=== PATIENT | female | born 1960 | race American Indian/Alaskan Native ===

== ENCOUNTER 2021-12-25 13:12 | Emergency (ER) | payer SELFPAY | END 2021-12-26 05:21 | disposition left against medical advice (07) | LOC: ED 13:12 | DX: R06.02 Shortness of breath (principal); Z53.21 Procedure and treatment not carried out due to patient leaving prior to being seen by health care provider ==

== ENCOUNTER 2021-12-30 06:41 | Emergency (ER) | payer MEDICARE, MEDICAID ==
[2021-12-30 06:49] VITALS: BP 134/82
[2021-12-30] MEDS ORDERED: dexAMETHasone 20 MG/5 ML VIAL IM ONE (07:46)
[2021-12-30] MEDS ORDERED: IPRATROPIUM 0.02% NEBU 2.5 ML IH ONE (07:48)
[2021-12-30] MEDS ORDERED: dexAMETHasone 20 MG/5 ML VIAL IV SCH (08:00)
[2021-12-30] MEDS ORDERED: ALBUTEROL 2.5 MG/3 ML NEBU IH SCH (08:00)
[2021-12-30] MEDS ORDERED: IPRATROPIUM 0.02% NEBU 2.5 ML IH SCH (08:00)
--- NOTE | 2021-12-30 08:30 | Emergency Department Report ---
ED Asthma HPI - General Chief Complaint: Adult Asthma Stated Complaint: ASTHMA ATTACK Time Seen by Provider: 12/30/21 07:11 Source: EMS Mode of arrival: Stretcher Limitations: No Limitations - History of Present Illness Initial Comments: This is a 61-year-old female nontoxic, well nourished in appearance, no acute signs of distress presents to the ED with c/o of acute on chronic asthma exacerbation. Patient stated she is out of her albuterol inhaler 1 month. Patient stated that she has seasonal allergies to pollen and has been outside that might have triggered her symptoms. Patient denies any cough. Patient denies any sick contact. Patient denies any recent travels, long car, recent hospital stays. Patient denies any calf pain or calf tenderness. Patient denies any chest pain, short of breath, fever, chills, nausea, vomiting, hemoptysis, numbness, tingling, headache or stiff neck. Past medical history includes asthma. MD Complaint: "asthma attack", wheezing -: days(s) Severity: mild Context: none known Associated Symptoms: none. denies: productive cough, dry cough, fever, chest pain, hemoptysis, leg edema, syncope - Related Data Current Asthma Therapy: none Previous Rx's Medication Instructions Recorded Last Taken Type Albuterol Mdi (or & Nicu Only) 2 puff IH QID PRN #8.5 gram 12/30/21 Unknown Rx [ProAir HFA Inhaler] Allergies Allergy/AdvReac Type Severity Reaction Status Date / Time prochlorperazine Allergy Anaphylaxis Verified 12/30/21 07:40 [From Compazine] shrimp Allergy Anaphylaxis Verified 12/30/21 07:40 ED Review of Systems ROS: Stated complaint: ASTHMA ATTACK Other details as noted in HPI Comment: All other systems reviewed and negative Constitutional: denies: chills, fever Eyes: denies: eye pain, eye discharge, vision change ENT: denies: ear pain, throat pain Respiratory: shortness of breath, wheezing. denies: cough, SOB with exertion, SOB at rest Cardiovascular: denies: chest pain, palpitations Endocrine: no symptoms reported Gastrointestinal: denies: abdominal pain, nausea, diarrhea Genitourinary: denies: urgency, dysuria, discharge Musculoskeletal: denies: back pain, joint swelling, arthralgia Skin: denies: rash, lesions Neurological: denies: headache, weakness, paresthesias Psychiatric: denies: anxiety, depression Hematological/Lymphatic: denies: easy bleeding, easy bruising ED Past Medical Hx - Past Medical History Previous Medical History?: Yes Hx Asthma: Yes - Surgical History Past Surgical History?: No - Social History Smoking Status: Never Smoker - Medications Home Medications: Home Medications Medication Instructions Recorded Confirmed Last Taken Type Albuterol Mdi (or & Nicu Only) 2 puff IH QID PRN #8.5 gram 12/30/21 Unknown Rx [ProAir HFA Inhaler] ED Physical Exam - General Limitations: No Limitations General appearance: alert, in no apparent distress - Head Head exam: Present: atraumatic, normocephalic - Eye Eye exam: Present: normal appearance - Neck Neck exam: Present: normal inspection, full ROM. Absent: lymphadenopathy - Respiratory Respiratory exam: Present: wheezes (Bilateral expiratory wheezing). Absent: respiratory distress, rales, rhonchi, stridor, chest wall tenderness, accessory muscle use, decreased breath sounds, prolonged expiratory - Cardiovascular Cardiovascular Exam: Present: normal rhythm, normal heart sounds. Absent: irregular rhythm, systolic murmur, diastolic murmur, rubs, gallop - Extremities Exam Extremities exam: Present: full ROM - Back Exam Back exam: Present: normal inspection, full ROM - Neurological Exam Neurological exam: Present: alert, oriented X3, normal gait - Psychiatric Psychiatric exam: Present: normal affect, normal mood - Skin Skin exam: Present: warm, dry, intact, normal color. Absent: rash ED Course Vital Signs 12/30/21 12/30/21 06:46 08:02 Temperature 98.3 F Pulse Rate 112 H Pulse Rate [ 90 Bilateral] Respiratory 22 Rate Respiratory 20 Rate [Bilateral ] Blood Pressure 134/82 O2 Sat by Pulse 99 Oximetry - Reevaluation(s) Reevaluation #1: 12/30/21 08:30 Patient is speaking in full sentences with no signs of distress noted. Reevaluation #2: 12/30/21 09:48 Patient states she feels much better and stated " I am ready to go home". At this time patient be discharged with appropriate follow-up. ED Medical Decision Making - Medical Decision Making This is a 61-year-old male that presents with asthma exacerbation. Patient is stable and was examined by me. Patient did receive breathing treatment and steroids in the ED which patient the symptoms has resolved and subsided. Posttreatment and there is no wheezing upon auscultation. Patient is discharged with albuterol. Patient was referred to Follow-up with a primary care doctor in 3-5 days or if symptoms worsen and continue return to emergency room as soon as possible. At time of discharge, the patient does not seem toxic or ill in appearance. No acute signs of distress noted. Patient agrees to discharge treatment plan of care. No further questions noted by the patient. This chart is dictated with using [employer] Critical care attestation.: If time is entered above; I have spent that time in minutes in the direct care of this critically ill patient, excluding procedure time. ED Disposition Clinical Impression: Asthma exacerbation Qualifiers: Asthma severity: mild Asthma persistence: intermittent Qualified Code(s): J45.21 - Mild intermittent asthma with (acute) exacerbation Disposition: 01 HOME / SELF CARE / HOMELESS Is pt being admited?: No Does the pt Need Aspirin: No Condition: Stable Instructions: Asthma, Adult Additional Instructions: Follow-up with a primary care doctor in 3-5 days or if symptoms worsen and continue return to emergency room as soon as possible. Prescriptions: Albuterol Mdi (or & Nicu Only) [ProAir HFA Inhaler] 2 puff IH QID PRN #8.5 gram PRN Reason: Shortness Of Breath Referrals: USHA CLAYTON MD [Primary Care Provider] - 3-5 Days PRIMARY CARE, [Referring] - 3-5 Days Time of Disposition: 09:49
== END 2021-12-30 10:13 | disposition home or self-care (01) ==
LOC: ED 06:41
DX: J45.901 Unspecified asthma with (acute) exacerbation (principal)
CPT/HCPCS: 94644; 96372; 99283; J1100

== ENCOUNTER 2022-01-06 03:08 | Emergency (ER) | payer MEDICARE ==
[2022-01-06 04:25] LABS: INR 0.76 (0.87-1.13)
[2022-01-06 04:26] LABS: Partial Thromboplastin Time 25.6 Sec. (24.2-36.6)
--- NOTE | 2022-01-06 04:26 | XRay Report ---
CHEST 1 VIEW 01/06/2022 3:18 AM INDICATION / CLINICAL INFORMATION: Dyspnea. COMPARISON: None available. FINDINGS: SUPPORT DEVICES: None. HEART / MEDIASTINUM: No significant abnormality. LUNGS / PLEURA: No significant pulmonary or pleural abnormality. No pneumothorax. ADDITIONAL FINDINGS: No significant additional findings. IMPRESSION: 1. No acute findings. Signer Name: Ever Shepherd DO Signed: 01/06/2022 4:22 AM Workstation Name: [id number]
[2022-01-06 04:27] LABS: Basophils # (Auto) 0.1 K/mm3 (0.0-0.1); Eosinophils # (Auto) 1.2 K/mm3 (0.0-0.4); Eosinophils % (Auto) 11.7 % (0.0-4.3); Hematocrit 42.5 % (30.3-42.9); Lymphocytes # (Auto) 3.3 K/mm3 (1.2-5.4); Lymphocytes % (Auto) 33.2 % (13.4-35.0); Mean Corpuscular HGB Conc 33 % (30-34); Mean Corpuscular Volume 81 fl (79-97); Monocytes # (Auto) 0.5 K/mm3 (0.0-0.8); Monocytes % (Auto) 5.4 % (0.0-7.3); Platelet Count 363 K/mm3 (140-440); Red Blood Count 5.26 M/mm3 (3.65-5.03); Red Cell Distribution Width 14.5 % (13.2-15.2)
[2022-01-06 04:33] LABS: Creatine Kinase MB 1.2 ng/mL (0.0-4.0)
[2022-01-06 04:35] LABS: Alanine Aminotransferase 21 units/L (7-56); Blood Urea Nitrogen 8 mg/dL (7-17); Calcium 9.3 mg/dL (8.4-10.2); Hemolysis Index 25
[2022-01-06 04:41] LABS: BUN/Creatinine Ratio 11
[2022-01-06] MEDS ORDERED: methylPREDNISolone Sod Succinate 125 MG/2 ML INJ IV ONE (06:53)
--- NOTE | 2022-01-06 07:03 | Emergency Department Report ---
ED Shortness of Breath HPI - General Chief Complaint: Dyspnea/Respdistress Stated Complaint: DIFF BREATHING Time Seen by Provider: 01/06/22 06:44 Source: EMS Mode of arrival: Ambulatory Limitations: No Limitations - History of Present Illness Initial Comments: Patient is a 61-year-old female with history of asthma brought in by EMS from home for shortness of breath. Given albuterol neb in route. - Related Data Previous Rx's Medication Instructions Recorded Last Taken Type Albuterol Mdi (or & Nicu Only) 2 puff IH QID PRN #8.5 gram 12/30/21 Unknown Rx [ProAir HFA Inhaler] predniSONE [Deltasone] 40 mg PO QDAY #10 01/06/22 Unknown Rx Allergies Allergy/AdvReac Type Severity Reaction Status Date / Time prochlorperazine Allergy Anaphylaxis Verified 12/30/21 07:40 [From Compazine] shrimp Allergy Anaphylaxis Verified 12/30/21 07:40 ED Review of Systems ROS: Stated complaint: DIFF BREATHING Other details as noted in HPI Comment: All other systems reviewed and negative Constitutional: denies: chills, fever Eyes: denies: eye pain, eye discharge, vision change ENT: denies: ear pain, throat pain Respiratory: shortness of breath Cardiovascular: denies: chest pain, palpitations Gastrointestinal: denies: abdominal pain, nausea, diarrhea Genitourinary: denies: urgency, dysuria, discharge Musculoskeletal: denies: back pain, joint swelling, arthralgia Skin: denies: rash, lesions Neurological: denies: headache, weakness, paresthesias Psychiatric: denies: anxiety, depression ED Past Medical Hx - Past Medical History Hx Asthma: Yes - Social History Smoking Status: Never Smoker Substance Use Type: None - Medications Home Medications: Home Medications Medication Instructions Recorded Confirmed Last Taken Type Albuterol Mdi (or & Nicu Only) 2 puff IH QID PRN #8.5 gram 12/30/21 Unknown Rx [ProAir HFA Inhaler] predniSONE [Deltasone] 40 mg PO QDAY #10 01/06/22 Unknown Rx ED Physical Exam - General Limitations: No Limitations General appearance: alert, in no apparent distress - Head Head exam: Present: atraumatic, normocephalic - Neck Neck exam: Present: normal inspection - Respiratory Respiratory exam: Present: normal lung sounds bilaterally. Absent: respiratory distress, wheezes - Cardiovascular Cardiovascular Exam: Present: regular rate, normal rhythm, normal heart sounds - GI/Abdominal GI/Abdominal exam: Present: soft. Absent: distended, tenderness - Neurological Exam Neurological exam: Present: alert, oriented X3 - Psychiatric Psychiatric exam: Present: normal affect, normal mood - Skin Skin exam: Present: warm, dry, intact, normal color ED Course Vital Signs 01/06/22 01/06/22 01/06/22 03:16 03:41 04:35 Temperature 97.6 F Pulse Rate 126 H 91 H Respiratory 35 H 16 11 L Rate Blood Pressure 202/170 Blood Pressure [Left] O2 Sat by Pulse 99 100 Oximetry 01/06/22 01/06/22 01/06/22 04:46 05:00 05:16 Temperature Pulse Rate 92 H 92 H 89 Respiratory 25 H 14 25 H Rate Blood Pressure 176/92 192/84 192/84 Blood Pressure [Left] O2 Sat by Pulse 100 100 100 Oximetry 01/06/22 01/06/22 01/06/22 05:30 05:37 05:38 Temperature 97.7 F Pulse Rate 88 88 Respiratory 16 16 Rate Blood Pressure 192/84 Blood Pressure 192/94 [Left] O2 Sat by Pulse 99 100 100 Oximetry 01/06/22 01/06/22 05:46 06:00 Temperature Pulse Rate 92 H 99 H Respiratory 16 16 Rate Blood Pressure 192/84 132/70 Blood Pressure [Left] O2 Sat by Pulse 100 100 Oximetry ED Medical Decision Making - Lab Data Result diagrams: 01/06/22 03:54 01/06/22 03:54 - Medical Decision Making 61-year-old female presenting to ED with complaint of asthma exacerbation. She was given albuterol by EMS. She was given IV Solu-Medrol here in the emergency department. On reassessment patients respiratory distress seems much improved. Will discharge home on 5-day course of prednisone. Critical care attestation.: If time is entered above; I have spent that time in minutes in the direct care of this critically ill patient, excluding procedure time. ED Disposition Clinical Impression: Asthma exacerbation Disposition: 01 HOME / SELF CARE / HOMELESS Is pt being admited?: No Does the pt Need Aspirin: No Condition: Stable Instructions: Asthma, Adult Time of Disposition: 09:09
[2022-01-06] MEDS ORDERED: ALBUTEROL 2.5 MG/3 ML NEBU IH ONE ×2 (08:00→08:20)
--- NOTE | 2022-01-06 10:42 | Electrocardiograph Report ---
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
[2022-01-06 11:40] VITALS: BP 150/69
[2022-01-06] MEDS ORDERED: IPRATROPIUM/ALBUTEROL SULFATE 3 ML AMPUL.NEB IH SCH (12:00)
== END 2022-01-06 11:40 | disposition home or self-care (01) ==
LOC: ED 03:08
DX: J45.901 Unspecified asthma with (acute) exacerbation (principal)
CPT/HCPCS: 36415; 71045; 80053; 82550; 82553; 83880; 84484; 85025; 85610; 85730; 93005; 94640; 96374; 99284; J2930; 94644

== ENCOUNTER 2022-01-15 15:55 | Emergency (ER) | payer MEDICARE, MEDICAID ==
[2022-01-15 17:33] VITALS: BP 200/91
--- NOTE | 2022-01-15 18:23 | XRay Report ---
CHEST 2 VIEWS INDICATION / CLINICAL INFORMATION: chest wall pain. COMPARISON: 01/06/2022 FINDINGS: SUPPORT DEVICES: None. HEART / MEDIASTINUM: No significant abnormality. LUNGS / PLEURA: No significant pulmonary or pleural abnormality. No pneumothorax. ADDITIONAL FINDINGS: No significant additional findings. IMPRESSION: 1. No acute findings. Signer Name: Zak Capellan MD Signed: 01/15/2022 6:19 PM Workstation Name: [id number]
--- NOTE | 2022-01-16 19:52 | Electrocardiograph Report ---
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
== END 2022-01-15 19:00 ==
LOC: ED 15:55
DX: R06.02 Shortness of breath (principal); Z53.21 Procedure and treatment not carried out due to patient leaving prior to being seen by health care provider
CPT/HCPCS: 71046; 93005

== ENCOUNTER 2022-01-18 04:45 | Emergency (ER) | payer MEDICARE, MEDICAID ==
[2022-01-18 16:50] VITALS: BP 164/94
== END 2022-01-19 00:08 | disposition left against medical advice (07) ==
LOC: ED 04:45
DX: R51.9 Headache, unspecified (principal); Z53.21 Procedure and treatment not carried out due to patient leaving prior to being seen by health care provider

== ENCOUNTER 2022-02-01 14:44 | Emergency (ER) | payer MEDICARE, MEDICAID ==
[2022-02-01] MEDS ORDERED: ALBUTEROL 2.5 MG/3 ML NEBU IH ONE (14:50)
[2022-02-01] MEDS ORDERED: IPRATROPIUM 0.02% NEBU 2.5 ML IH ONE (14:50)
--- NOTE | 2022-02-01 14:52 | Emergency Department Report ---
ED Shortness of Breath HPI - General Stated Complaint: DIFFICULTY BREATHING Time Seen by Provider: 02/01/22 14:50 Source: patient, family Mode of arrival: Wheelchair Limitations: No Limitations - History of Present Illness Initial Comments: Patient is a 61-year-old female who comes to the ER with severe shortness of breath and wheezing. She had been seen prior and given medications but she states they are not working. She has difficulty speaking in full sentences. IV aware of need for bed. Patient moved to room 39. Dr. Laureano aware. Screening orders placed. MD Complaint: shortness of breath - Related Data Previous Rx's Medication Instructions Recorded Last Taken Type Albuterol Mdi (or & Nicu Only) 2 puff IH QID PRN #8.5 gram 12/30/21 Unknown Rx [ProAir HFA Inhaler] Albuterol Sulfate [Albuterol 0.63% 0.63 mg IH TID PRN #30 ml 01/06/22 Unknown Rx NEBS] Ipratropium [Atrovent] 0.5 mg IH Q4HR #20 ml 01/06/22 Unknown Rx Nebulizer [Aeroneb Go Nebulizer] 1 each MC BID #1 each 01/06/22 Unknown Rx predniSONE [Deltasone] 40 mg PO QDAY #10 01/06/22 Unknown Rx Allergies Allergy/AdvReac Type Severity Reaction Status Date / Time prochlorperazine Allergy Anaphylaxis Verified 12/30/21 07:40 [From Compazine] shrimp Allergy Anaphylaxis Verified 12/30/21 07:40 ED Review of Systems ROS: Stated complaint: DIFFICULTY BREATHING Other details as noted in HPI Comment: All other systems reviewed and negative ED Past Medical Hx - Past Medical History Previous Medical History?: Yes Hx Hypertension: Yes Hx CVA: Yes Hx Pulmonary Embolism: No Hx Asthma: Yes - Surgical History Past Surgical History?: Yes - Family History Family history: no significant - Social History Smoking Status: Never Smoker Substance Use Type: None - Medications Home Medications: Home Medications Medication Instructions Recorded Confirmed Last Taken Type Albuterol Mdi (or & Nicu Only) 2 puff IH QID PRN #8.5 gram 12/30/21 Unknown Rx [ProAir HFA Inhaler] Albuterol Sulfate [Albuterol 0.63% 0.63 mg IH TID PRN #30 ml 01/06/22 Unknown Rx NEBS] Ipratropium [Atrovent] 0.5 mg IH Q4HR #20 ml 01/06/22 Unknown Rx Nebulizer [Aeroneb Go Nebulizer] 1 each MC BID #1 each 01/06/22 Unknown Rx predniSONE [Deltasone] 40 mg PO QDAY #10 01/06/22 Unknown Rx ED Physical Exam - Respiratory Respiratory exam: Present: wheezes ED Course Vital Signs 02/01/22 14:49 Temperature 98.9 F Pulse Rate 129 H Respiratory 14 Rate Blood Pressure 147/105 O2 Sat by Pulse 95 Oximetry Critical care attestation.: If time is entered above; I have spent that time in minutes in the direct care of this critically ill patient, excluding procedure time. ED Disposition Clinical Impression: SOB (shortness of breath) Disposition: 30 STILL A PATIENT Is pt being admited?: No Does the pt Need Aspirin: No Condition: Stable Time of Disposition: 15:06
[2022-02-01 14:54] VITALS: BP 147/105
[2022-02-01] MEDS ORDERED: MAGNESIUM SULFATE 2 GM/50 ML BAG IV ONE (15:10)
[2022-02-01] MEDS ORDERED: SODIUM CHLORIDE 0.9% 500 ML 500 ML IV ONE (15:10)
[2022-02-01] MEDS ORDERED: TERBUTALINE 1 MG/1 ML INJ SUB-Q ONE (15:10)
[2022-02-01] MEDS ORDERED: methylPREDNISolone Sod Succinate 125 MG/2 ML INJ IV ONE (15:10)
--- NOTE | 2022-02-01 15:12 | Emergency Department Report ---
ED Shortness of Breath HPI - General Chief Complaint: Dyspnea/Respdistress Stated Complaint: DIFFICULTY BREATHING Time Seen by Provider: 02/01/22 14:50 Source: patient, family Mode of arrival: Wheelchair Limitations: No Limitations - History of Present Illness Initial Comments: 61 yo female with copd c/o shortness of breath - Related Data Previous Rx's Medication Instructions Recorded Last Taken Type Albuterol Mdi (or & Nicu Only) 2 puff IH QID PRN #8.5 gram 12/30/21 Unknown Rx [ProAir HFA Inhaler] Albuterol Sulfate [Albuterol 0.63% 0.63 mg IH TID PRN #30 ml 01/06/22 Unknown Rx NEBS] Ipratropium [Atrovent NEB] 0.5 mg IH Q4HR #20 ml 01/06/22 Unknown Rx Nebulizer [Aeroneb Go Nebulizer] 1 each MC BID #1 each 01/06/22 Unknown Rx ALBUTEROL NEB's [Proventil 0.083% 2.5 mg IH TID PRN #30 neb 02/01/22 Unknown Rx NEBS] Albuterol Sulfate 1.25 mg IH 4XD #1 02/01/22 Unknown Rx predniSONE [Deltasone] 40 mg PO QDAY #10 02/01/22 Unknown Rx Allergies Allergy/AdvReac Type Severity Reaction Status Date / Time prochlorperazine Allergy Anaphylaxis Verified 12/30/21 07:40 [From Compazine] shrimp Allergy Anaphylaxis Verified 12/30/21 07:40 ED Review of Systems ROS: Stated complaint: DIFFICULTY BREATHING Other details as noted in HPI ED Past Medical Hx - Past Medical History Previous Medical History?: Yes Hx Hypertension: Yes Hx CVA: Yes Hx Pulmonary Embolism: No Hx Asthma: Yes Hx COPD: Yes Hx Dementia: Yes Additional medical history: high cholesterol - Surgical History Past Surgical History?: Yes - Social History Smoking Status: Never Smoker Substance Use Type: None - Medications Home Medications: Home Medications Medication Instructions Recorded Confirmed Last Taken Type Albuterol Mdi (or & Nicu Only) 2 puff IH QID PRN #8.5 gram 12/30/21 Unknown Rx [ProAir HFA Inhaler] Albuterol Sulfate [Albuterol 0.63% 0.63 mg IH TID PRN #30 ml 01/06/22 Unknown Rx NEBS] Ipratropium [Atrovent NEB] 0.5 mg IH Q4HR #20 ml 01/06/22 Unknown Rx Nebulizer [Aeroneb Go Nebulizer] 1 each MC BID #1 each 01/06/22 Unknown Rx ALBUTEROL NEB's [Proventil 0.083% 2.5 mg IH TID PRN #30 neb 02/01/22 Unknown Rx NEBS] Albuterol Sulfate 1.25 mg IH 4XD #1 02/01/22 Unknown Rx predniSONE [Deltasone] 40 mg PO QDAY #10 02/01/22 Unknown Rx ED Physical Exam - General Limitations: No Limitations ED Course Vital Signs 02/01/22 14:49 Temperature 98.9 F Pulse Rate 129 H Respiratory 14 Rate Blood Pressure 147/105 O2 Sat by Pulse 95 Oximetry - Reevaluation(s) Reevaluation #1: 02/01/22 17:42 Patient reports resolution of her symptoms, and is no longer wheezing, no longer tachycardic, and no longer tachypneic. Patient agrees with plan to be discharged home. ED Medical Decision Making - Lab Data Result diagrams: 02/01/22 16:50 Critical care attestation.: If time is entered above; I have spent that time in minutes in the direct care of this critically ill patient, excluding procedure time. ED Disposition Clinical Impression: SOB (shortness of breath), Asthma attack Disposition: 01 HOME / SELF CARE / HOMELESS Is pt being admited?: No Does the pt Need Aspirin: No Condition: Stable Instructions: Asthma, Adult, Shortness of Breath, Adult, [id number] Prescriptions: Albuterol Sulfate 1.25 mg IH 4XD #1 predniSONE [Deltasone] 40 mg PO QDAY #10 ALBUTEROL NEB's [Proventil 0.083% NEBS] 2.5 mg IH TID PRN #30 neb PRN Reason: Wheezing Time of Disposition: 17:48
--- NOTE | 2022-02-01 16:32 | XRay Report ---
CHEST 1 VIEW 02/01/2022 3:13 PM INDICATION / CLINICAL INFORMATION: sob. COMPARISON: 01/15/2022 FINDINGS: SUPPORT DEVICES: None. HEART / MEDIASTINUM: No significant abnormality. LUNGS / PLEURA: No significant pulmonary or pleural abnormality. No pneumothorax. ADDITIONAL FINDINGS: No significant additional findings. IMPRESSION: 1. No acute findings. Signer Name: Jarvis Caraballo MD Signed: 02/01/2022 4:27 PM Workstation Name: [id number]
[2022-02-01 17:20] LABS: Basophils # (Auto) 0.1 K/mm3 (0.0-0.1); Eosinophils # (Auto) 0.7 K/mm3 (0.0-0.4); Hemoglobin 14.2 gm/dl (10.1-14.3); Lymphocytes # (Auto) 3.9 K/mm3 (1.2-5.4); Lymphocytes % (Auto) 38.6 % (13.4-35.0); Mean Corpuscular HGB Conc 33 % (30-34); Mean Corpuscular Volume 81 fl (79-97); Monocytes # (Auto) 0.7 K/mm3 (0.0-0.8); Monocytes % (Auto) 7.4 % (0.0-7.3); Platelet Count 345 K/mm3 (140-440); Red Blood Count 5.32 M/mm3 (3.65-5.03); Red Cell Distribution Width 14.3 % (13.2-15.2)
[2022-02-01 17:45] LABS: Alanine Aminotransferase 13 units/L (7-56); Albumin 4.4 g/dL (3.9-5); Blood Urea Nitrogen 8 mg/dL (7-17); Calcium 9.5 mg/dL (8.4-10.2); Hemolysis Index 98
[2022-02-01 17:49] LABS: BUN/Creatinine Ratio 11
== END 2022-02-01 18:05 | disposition left against medical advice (07) ==
LOC: ED 14:44
DX: R06.02 Shortness of breath (principal); Z88.8 Allergy status to other drugs, medicaments and biological substances
CPT/HCPCS: 36415; 71045; 80053; 84484; 85025; 94640; 96365; 96372; 96375; 99284; J2930; J3105; J3475; J7040

== ENCOUNTER 2022-02-16 11:48 | Emergency (ER) | payer MEDICARE, MEDICAID | END 2022-02-16 12:03 | disposition left against medical advice (07) | LOC: ED 11:48 | DX: R06.02 Shortness of breath (principal); Z53.21 Procedure and treatment not carried out due to patient leaving prior to being seen by health care provider ==

== ENCOUNTER 2022-03-19 16:47 | Emergency (ER) | payer MEDICAID, MEDICARE ==
[2022-03-19] MEDS ORDERED: ASPIRIN 325 MG TAB PO ONE (17:01)
--- NOTE | 2022-03-19 17:29 | XRay Report ---
CHEST 2 VIEWS INDICATION / CLINICAL INFORMATION: chest pain. COMPARISON: 02/01/2022 FINDINGS: SUPPORT DEVICES: None. HEART / MEDIASTINUM: No significant abnormality. LUNGS / PLEURA: No significant pulmonary or pleural abnormality. No pneumothorax. ADDITIONAL FINDINGS: No significant additional findings. IMPRESSION: 1. No acute findings. Signer Name: Zak Capellan MD Signed: 03/19/2022 5:25 PM Workstation Name: [id number]
[2022-03-19 18:16] LABS: Basophils # (Auto) 0.1 K/mm3 (0.0-0.1); Eosinophils # (Auto) 0.8 K/mm3 (0.0-0.4); Eosinophils % (Auto) 7.6 % (0.0-4.3); Hematocrit 45.4 % (30.3-42.9); Hemoglobin 15.1 gm/dl (10.1-14.3); Lymphocytes # (Auto) 4.1 K/mm3 (1.2-5.4); Lymphocytes % (Auto) 40.4 % (13.4-35.0); Mean Corpuscular HGB Conc 33 % (30-34); Mean Corpuscular Volume 81 fl (79-97); Monocytes # (Auto) 0.6 K/mm3 (0.0-0.8); Monocytes % (Auto) 6.3 % (0.0-7.3); Red Blood Count 5.62 M/mm3 (3.65-5.03)
[2022-03-19 18:33] LABS: Platelet Count 368 K/mm3 (140-440)
[2022-03-19 18:41] LABS: Alanine Aminotransferase 15 units/L (7-56); Albumin 4.5 g/dL (3.9-5); BUN/Creatinine Ratio 10; Blood Urea Nitrogen 7 mg/dL (7-17); Calcium 9.9 mg/dL (8.4-10.2); Hemolysis Index 72
== END 2022-03-19 19:00 ==
LOC: ED 16:47
DX: R07.89 Other chest pain (principal); J45.909 Unspecified asthma, uncomplicated; Z53.21 Procedure and treatment not carried out due to patient leaving prior to being seen by health care provider
CPT/HCPCS: 36415; 71046; 80053; 84484; 85025